=== PATIENT | female | born 1960 ===

== ENCOUNTER 2019-12-06 21:53 | Inpatient (IN) | payer MEDICAID ==
[2019-12-07 14:06] VITALS: BP 132/87
[2019-12-07] MEDS ORDERED: Magnesium Hydroxide (MOM) 30 mL UDC PO PRN (14:10)
[2019-12-07] MEDS ORDERED: Maalox 30 mL Cup PO PRN (14:10)
[2019-12-07] MEDS ORDERED: Acetaminophen 500 MG TAB PO PRN (14:10)
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
[2019-12-08] MEDS: Multivitamin Tab PO SCH ×2 (09:00→09:53)
[2019-12-08] MEDS ORDERED: Escitalopram Oxalate 5 mg Tab PO SCH (09:00)
--- NOTE | 2019-12-08 13:21 | Psychiatric Evaluation ---
DATE OF SERVICE: 12/07/19 IDENTIFICATION: This is a 59-year-old female transferred to [facility] from [facility] on a 5150 hold for grave disability. CHIEF COMPLAINT: "I can't live with my mom." HISTORY OF PRESENT ILLNESS: This is a 59-year-old female admitted to [facility] from [facility] in [place]. The patient was started on a 5150 hold and subsequently on to a 14-day hold and transferred to [facility] for ongoing treatment. The patient apparently has had significant agitation at home with poor self-care. She has been isolating to her room, withdrawn, losing weight, not caring for her hygiene, has not brushed her teeth or showered in many days. The patient also has been depressed, angry and uncooperative with her family. The patient was visited at bedside this afternoon. She is very angry with her mother. She is visually disheveled. Her teeth are discolored. She appears malodorous. She is uncooperative with the interview. She apparently was taking Lexapro in the past, but the patient reports that she does not want to take any medications and that there is nothing wrong with her. The patient is very fixated on her mother stating that she is causing all the problems. She, otherwise, does admit for depression. She also admits to anxiety. She admits to insomnia and poor appetite, but she is not interested in any care at this time. PAST PSYCHIATRIC HISTORY: The patient does report a history of previous inpatient hospitalization many years ago after her divorce. She is reluctant to discuss if there has been any previous suicide attempts. She reports that she has been trialled on antidepressants in the past. PAST MEDICAL HISTORY: See H and P. ALLERGIES: No known drug allergies. SOCIAL HISTORY: The patient has a history of cannabis use and the patient also admits to tobacco use. Denies any alcohol use. SOCIAL HISTORY: The patient resides in a home with her family. She is , unemployed. LEGAL HISTORY: Denies. FAMILY HISTORY: Denies. MENTAL STATUS EXAMINATION: The patient appears her stated age. She is with limited cooperation, guarded with the interview, disheveled appearing. Limited eye contact, loud speech, angry mood, labile affect. Thought process is loose at this time, not willing to discuss if there is any suicidal or homicidal thoughts. The patient does appear somewhat internally preoccupied. Denies any paranoia. Alert and oriented to person and place. Insight, judgment and impulse control appear to be poor at this time. ASSESSMENT: This is a 59-year-old female admitted to [facility] from [facility], currently on a 14-day hold for grave disability. The patient has a significant poor self-care, not taking showers, not eating, not brushing her teeth, has been isolating to her room in bed all day, not caring for her basic needs and not allowing care from the family. The patient presents angry. She has poor insight into her condition, visually disheveled, has no plan for self-care at this time. PROVISIONAL DIAGNOSES: 1. Major depressive disorder, recurrent, severe. 2. Cannabis use disorder. TREATMENT PLAN: We will accept the 14-day hold. We will restart the patient on Lexapro at 5 mg p.o. daily for depression. We reviewed the risks, benefits and alternatives with the patient. We will also encourage group therapy and attempt to obtain collateral information. ESTIMATED LENGTH OF STAY: 5-7 days. CRITERIA FOR DISCHARGE: The patient will not be a danger to self or danger to others. She will have improved self-care. She will have improved coping with stressors. JOB# [id number] MAHENDRA
--- NOTE | 2019-12-08 22:38 | Psych Progress Note ---
Psych Progress Note - Intro Date of Progress Note: 12/08/19 - Assessment Assessment: patient remains isolated to room. withdrawan. not participating with treatment plan. refusing Lexapro. poor hygiene. poor insight. no plan for self care. - Vitals, I&O Vitals: Vital Signs - 24 hr 12/08/19 12/08/19 12/08/19 06:33 14:00 21:19 Temp 97.4 F 97.6 F 97.5 F HR 76 87 81 RR 20 18 20 BP 129/73 117/60 107/84 O2 Sat % 96 96 96 - Objective Psych General Appearance: Report: Disheveled Psych Behavior: Report: Uncooperative Psych Speech: Report: Soft (e) Psych Mood: Report: Irritable Psych Affect: Report: Anxious Psych Thought Process: Report: Paranoid Psych Cognition: Report: Grossly Intact Psych Insight: Report: Impaired Psych Judgement: Report: Impaired - Plan Plan: cont meds, encouraged adherence, encouraged groups - Review of Relevant Data Review of Relevant Data: I have reviewed the following items and time lona (where applicable) has been applied. - Medications Current Medications: Current Medications Acetaminophen (Tylenol) 650 mg PO Q4H PRN PRN Reason: Pain (Mild 1-3) Stop: 02/05/20 14:09 Acetaminophen (Tylenol Extra Strength) 1,000 mg PO Q6H PRN PRN Reason: Pain (Moderate 4-6) Stop: 02/05/20 14:09 Al Hydrox/Mg Hydrox/Simethicone (Maalox) 30 ml PO Q4HR PRN PRN Reason: GI DISTRESS Stop: 02/05/20 14:09 Escitalopram Oxalate (Lexapro) 5 mg PO DAILY BUD; Protocol Stop: 02/06/20 08:59 Ibuprofen (Motrin) 400 mg PO Q4H PRN PRN Reason: Pain (Severe 7-10) Stop: 02/05/20 14:09 Lorazepam (Ativan) 0.5 mg PO Q4HR PRN; Protocol PRN Reason: Agitation Stop: 02/05/20 15:49 Magnesium Hydroxide (Milk Of Magnesia) 30 ml PO HS PRN PRN Reason: Constipation Multivitamins/Vitamin C (Theragran) 1 tab PO DAILY BUD Stop: 02/06/20 08:59 Last Admin: 12/08/19 09:00 Dose: Not Given Zolpidem Tartrate (Ambien) 5 mg PO HSMR1 PRN PRN Reason: Insomnia Stop: 02/05/20 14:09 Last Admin: 12/08/19 21:42 Dose: 5 mg
[2019-12-09] MEDS: Multivitamin Tab PO SCH (08:32)
--- NOTE | 2019-12-09 18:30 | Progress Notes ---
DATE: 12/09/2019 SUBJECTIVE: A 59-year-old female coming into the hospital and started on a hold, then placed on a 14-day hold. Apparently, patient was agitated at home, poor self-care, isolation, withdrawn, losing weight, not caring for her hygiene, not brushing or showering for many days, mostly depressed, angry, alludes the of her father, also angry with her mom who she lives with, not cooperative with interview today, does not want to take medications. Notes that she is not depressed, upset about her father dying, stating that her family is against her and they are lying about how she is doing, she states that she is fine at home. She "meditates for depression and self-healing." PAST PSYCHIATRIC HISTORY: Apparently, has been in psychiatric hospitals before. SOCIAL HISTORY: Using cannabis, living at home with mom, her brothers, not working, . She has no kids. MENTAL STATUS EXAMINATION: Unkempt, appears somewhat underweight. No overt SI or HI. Convinced her family is telling lies about her. ASSESSMENT: A 59-year-old female, currently in the hospital, depressed, withdrawn, poor self-care. PLAN: I will be initiating dosing of mirtazapine, stop the dosing of Lexapro. We will also attempt to contact patient's family to increase collateral. Continue the 14-day hold. JOB# [id number]
[2019-12-10] MEDS: Multivitamin Tab PO SCH (08:22)
--- NOTE | 2019-12-11 01:28 | Progress Notes ---
DATE: 12/10/2019 SUBJECTIVE: The patient in the hospital, apparently was at home, mostly in bed, not eating, not sleeping, not taking care of herself, not showering, not brushing her teeth, decompensating per family. The patient denies this, stating that she was traveling, stating that her family is trying to get her to qualify for social security disability since she cannot work that there is some ____ to get her hospitalized so that she will be a more attractive candidate for social security disability. The patient is agreeable to take mirtazapine, stating that antidepressants generally cause her stomach upset and the patient noting that the family trying to set her up. Medications reviewed. Labs were reviewed. Vitals were reviewed. ASSESSMENT: A 59-year-old female, depressed, very poor self-care. Family cannot take care of her, concerns about her p.o. intake. PLAN: We will continue to monitor ____ mirtazapine, starting a small dose of Abilify. JOB# [id number]
[2019-12-11] MEDS: Multivitamin Tab PO SCH (08:51)
--- NOTE | 2019-12-11 14:59 | Progress Notes ---
DATE: 12/11/2019 SUBJECTIVE: A 59-year-old female, currently in the hospital, was not eating, was not sleeping at home and was deteriorating. The patient generally irritable, wants to go home, isolative, mostly withdrawn, keeps to self, did not want to talk patient's ____. The patient states that her family ____ to send her home. Mostly withdrawn, keeps to self. She is taking dosing of Remeron, Abilify. No side effects. ASSESSMENT: The patient in the hospital. Concerns for poor p.o. intake, withdrawn, poor ADLs. Family concerned that she was not taking care of herself, not eating, losing weight. PLAN: We will continue dosing of mirtazapine, ongoing depression. Concerns for safety. JOB# [id number]
[2019-12-12] MEDS: Multivitamin Tab PO SCH (09:04)
--- NOTE | 2019-12-12 12:16 | Progress Notes ---
DATE: 12/12/2019 SUBJECTIVE: The patient in the hospital, irritable. Does not really want to engage much. I asked her to get up, so she can walk around. She states "not now." Irritable on exam, resistant to taking medications, but agreeable to mirtazapine, Abilify. administrative services director spoke with family. I will attempt to get in touch with them. The patient wants to go back with family at home. She is independent. She is showering on her own, going to the bathroom on her own. She just mostly stays in bed and the patient's mom has some health problems. The patient cannot really care for herself based on what the family is saying. Mostly isolating in her room, losing weight and not caring for her hygiene. The patient is noting that she is eating and drinking, mostly preoccupied with going home. ASSESSMENT: Concerns for poor p.o. intake, ongoing depression, irritable, mostly just wants to lie in bed. The patient does not want to talk to staff, does not want to talk to the patient's rights advocate, does not want to talk to me. She is taking her bedtime dosing of medications. I talked about taking the Abilify. PLAN: We will continue inpatient monitoring. We will attempt to contact family today. JOB# [id number]
[2019-12-13] MEDS: Multivitamin Tab PO SCH (08:29)
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
[2019-12-14] MEDS: Multivitamin Tab PO SCH (08:46)
--- NOTE | 2019-12-14 17:01 | Progress Notes ---
DATE: 12/14/2019 SUBJECTIVE: The patient was seen and evaluated. The patient's chart was reviewed. Covering for Dr. Yan. IDENTIFYING DATA: This is a 59-year-old female brought in here initially on a 5150. She has been agitated at home with poor self-care, uncooperative with the family and disorganized. In the last 24 hours, the patient continues to be depressed and irritable. Today on [id number] evaluation, she is avoidant and refuses to be interviewed, needs a lot of redirection to maintain a simple conversation. MENTAL STATUS EXAMINATION: Avoidant, distraught, depressed, withdrawn. ASSESSMENT AND PLAN: The patient is still withdrawn, disengaged state and depressive, state. We will continue with primary psychiatric treatment plan and goals, which includes Abilify 2 mg a day and Remeron 15 a day. JOB# [id number]
[2019-12-15] MEDS: Multivitamin Tab PO SCH (08:22)
--- NOTE | 2019-12-15 16:31 | Progress Notes ---
DATE: 12/15/2019 SUBJECTIVE: The patient was seen and evaluated. The patient's chart was reviewed. Today on [id number] evaluation, the patient is in her room, isolative, reporting a lot of depression, withdrawn, and disengaged in the interview. MENTAL STATUS EXAMINATION: Ongoing feelings of helplessness, withdrawn, disengaged, depressed. ASSESSMENT AND PLAN: The patient continues to present withdrawn, disengaged. Continue with primary psychiatrist's treatment plan and goals, which include Remeron and Abilify at 2 mg a day. [facility]# [id number]
[2019-12-16] MEDS: Multivitamin Tab PO SCH (09:14)
[2019-12-16] MEDS: Fish Oil 1,000 MG SGL PO SCH (14:54)
--- NOTE | 2019-12-17 00:58 | Progress Notes ---
DATE: 12/16/2019 SUBJECTIVE: The patient in the hospital, still demanding more Ativan, stating she is very anxious here, does not want to be here, mostly withdrawn and isolative. She is noted to be eating somewhat better, anxious, still restless, very depressed, mostly withdrawn, does not want to talk to nobody, wants to go home as soon as possible, it is unclear if the patient is going to be able to go home, I need to contact family. ASSESSMENT: The patient is depressed, down, withdrawn, better med compliance. Currently on dosing of mirtazapine, a small dose of Ativan as well as Abilify. PLAN: We will attempt to contact family today. JOB# [id number]
[2019-12-17] MEDS: Fish Oil 1,000 MG SGL PO SCH (08:45)
[2019-12-17] MEDS: Multivitamin Tab PO SCH (08:45)
--- NOTE | 2019-12-17 15:43 | Progress Notes ---
DATE: 12/17/2019 SUBJECTIVE: The patient slept for about 6-1/2 hours, still depressed, down, sad, withdrawn. I talked to mom at length yesterday. Mom frustrated. The patient has been chronically down, depressed, mostly just in bed, keeps to self. This has been going on really for decades. Apparently, the patient got a divorce and has been very depressed ever since, mom having hard time with her at home, but accepting her back home. The patient has been eating okay, going to the bathroom okay. The patient is irritable, does not really want to talk to me much. Per staff, she is again mostly isolative, keeps to self, but she is eating, would like to leave, frustrated about being in the hospital. PLAN: We will continue inpatient monitoring, titrate dosing of the Remeron, Abilify. Discussed with social media assistant. JOB# [id number]
[2019-12-18] MEDS: Multivitamin Tab PO SCH (08:13)
[2019-12-18] MEDS: Fish Oil 1,000 MG SGL PO SCH (08:13)
--- NOTE | 2019-12-18 16:12 | Progress Notes ---
DATE: 12/18/2019 SUBJECTIVE: A 59-year-old female in the hospital, mostly depressed, withdrawn, isolative, when she sees me she is somewhat irritable. On exam, sits up, stating she would like to leave as soon as possible. The patient is argumentative, irritable. States she has to go home. She has some business to take care of at home. She believes that her mom actually needs some help at home. The mom is pretty sick. Fairly well oriented, more engaged, sometimes upset, tearful per staff because she wants to go home. She has been taking her medications, eating. No dangerous behaviors. ASSESSMENT: The patient likely approaching her baseline, generally calmer, more cooperative, better p.o. intake. PLAN: We will err on the side of caution, monitor for further 24 hours. We will plan for disposition tomorrow. The patient will need a transportation. JOB# [id number]
[2019-12-19] MEDS: Multivitamin Tab PO SCH (08:38)
[2019-12-19] MEDS: Fish Oil 1,000 MG SGL PO SCH (08:38)
--- NOTE | 2019-12-19 17:15 | Discharge Summary ---
DATE OF DISCHARGE: 12/19/2019 HISTORY OF PRESENT ILLNESS: A 59-year-old female in the hospital because she was placed on a hold. Apparently, the mom could not take care of her and she was not eating and she was deteriorating, was not brushing her teeth, refusing to bathe, concerns for grave disability. When she came to the hospital, she was disheveled, poor dentition and was minimizing her symptoms, depressed, anxious. I spoke with mom over the phone. The patient mostly focused on leaving the hospital and going home, stating that she is eating and walking around, "I don't need to be here. PAST PSYCHIATRIC HISTORY: Depression for "many years" and suicide attempts. SOCIAL HISTORY: Living with mom, not , no kids. The patient denying any drug use, but concerns that she is using marijuana per the mom. MEDICATIONS: Noted. MENTAL STATUS EXAMINATION: Please see full psych eval for details. PROVISIONAL DIAGNOSES: Major depression, recurrent, severe. Anxiety, unspecified. MEDICAL: Please see full H and P. HOSPITAL COURSE: After initial assessment, the patient was initiated on medications, which she initially refused, but began to comply with. Medications were adjusted, titrated Abilify for example. Over the course of treatment, mood improved, affect improved, more up and around, remained depressed and irritable, but I was more able to engage with her. Her appetite improved, sleep improved. Sometimes she was med seeking consistently asking me to increase her dosing of Ativan. Mom was able to accept her back home. Staff noting that she seems somewhat more energetic and was taking better care of her ADLs, brushing her teeth, bathing. CONDITION UPON DISCHARGE: Improved, better ADLs, more linear and engaged. No SI, no HI, no intent, no plan. No overt psychotic symptoms. AO x 4. Better insight. Good medication compliance. No side effects. DISCHARGE DIAGNOSES: Major depression, recurrent, severe, no psychosis. Also, anxiety, unspecified, detriments of drug use discussed. The patient denies using any marijuana. PROGNOSIS: The patient follows up with outpatient mental health services and remains compliant with treatment. Prognosis will improve, otherwise guarded. JOB# [id number]
== END 2019-12-19 15:15 | disposition home or self-care (01) | DRG 885 ==
LOC: GERO 12-07 13:30
PROVIDERS: ADMIT Psychiatry & Neurology Psychiatry; ATTEND Psychiatry & Neurology Psychiatry
DX: F33.9 Major depressive disorder, recurrent, unspecified (principal); F12.129 Cannabis abuse with intoxication, unspecified; F41.9 Anxiety disorder, unspecified
CPT/HCPCS: 82948-90; 83036-90; Z7610